=== PATIENT | female | born 1990 ===

== ENCOUNTER 2019-10-18 12:05 | Outpatient (CLI) | payer MEDICAID ==
[~2019-10-18] VITALS: Ht 162.6 cm; Wt 95.0 kg
[2019-10-18 13:01] LABS: MICROSCOPIC INDICATED
[2019-10-18 13:03] LABS: BASOPHILS # (AUTO) 0.02 x10^3/uL (0-0.1); BASOPHILS % (AUTO) 0 % (0-1); EOSINOPHILS # (AUTO) 0.02 x10^3/uL (0-0.4); EOSINOPHILS % (AUTO) 0 % (1-7); LYMPHOCYTES # (AUTO) 1.88 x10^3/uL (1-3.4); LYMPHOCYTES % (AUTO) 15 % (22-44); MD NO; MEAN CORPUSCULAR HEMOGLOBIN 30.8 pg (27.0-34.8); MEAN CORPUSCULAR HGB CONC 33.1 g/dL (32.4-35.8); MEAN PLATELET VOLUME 9.2 fL (7.4-10.4); MONOCYTES # (AUTO) 0.62 x10^3/uL (0.2-0.8); MONOCYTES % (AUTO) 5 % (2-9); NEUTROPHILS # (AUTO) 9.72 x10^3/uL (1.8-6.8); NEUTROPHILS % (AUTO) 79 % (42-75); PLATELET COUNT 241 x10^3/uL (130-400); RED BLOOD COUNT 4.59 x10^6/uL (3.82-5.3); RED CELL DISTRIBUTION WIDTH 13.1 % (9.6-15.2)
[2019-10-18 13:05] LABS: CREATININE,URINE RANDOM 91.1 mg/dL
[2019-10-18 13:10] VITALS: BP 116/62
[2019-10-18 13:16] LABS: ALANINE AMINOTRANSFERASE 26 U/L (12-78); ALBUMIN 2.8 g/dL (3.4-5.0); ANION GAP 8 mmol/L (5-15); BILIRUBIN, DIRECT < 0.1 mg/dL (0.1-0.2); CALCIUM 8.6 mg/dL (8.5-10.1); CHLORIDE 109 mmol/L (98-107); CREATININE 0.57 mg/dL (0.55-1.02)
[2019-10-18 13:20] LABS: ALKALINE PHOSPHATASE 154 U/L (45-117); BILIRUBIN,TOTAL 0.4 mg/dL (0.2-1.0); TOTAL PROTEIN 6.8 g/dL (6.4-8.2)
[2019-10-18] MEDS ORDERED: PREN1TAB10 PO (15:31)
== END 2019-10-18 15:55 | disposition home or self-care (01) ==
LOC: LDOP 12:05
PROVIDERS: ATTEND Obstetrics & Gynecology
DX: O36.8331 Maternal care for abnormalities of the fetal heart rate or rhythm, third trimester, fetus 1 (principal); Z11.59 Encounter for screening for other viral diseases; Z3A.38 38 weeks gestation of pregnancy
CPT/HCPCS: 36415; 59025; 76819; 80053; 81001; 82248; 82570; 84156; 84550; 85025; 87635

== ENCOUNTER 2019-10-20 15:39 | Inpatient (IN) | payer MEDICAID, OTHER ==
[~2019-10-20] VITALS: Ht 162.6 cm; Wt 95.0 kg
[~2019-10-20 15:39] MED LIST: PREN1TAB10 PO
[2019-10-20] MEDS ORDERED: LACTATED RINGERS 1,000 ML IVBOLUS ONE (16:00)
[2019-10-20 16:12] VITALS: BP 126/75
[2019-10-20 16:19] LABS: BASOPHILS # (AUTO) 0.03 x10^3/uL (0-0.1); BASOPHILS % (AUTO) 0 % (0-1); EOSINOPHILS # (AUTO) 0.02 x10^3/uL (0-0.4); EOSINOPHILS % (AUTO) 0 % (1-7); LYMPHOCYTES # (AUTO) 2.09 x10^3/uL (1-3.4); LYMPHOCYTES % (AUTO) 16 % (22-44); MD NO; MEAN CORPUSCULAR HEMOGLOBIN 30.5 pg (27.0-34.8); MEAN CORPUSCULAR HGB CONC 32.6 g/dL (32.4-35.8); MEAN PLATELET VOLUME 9.4 fL (7.4-10.4); MONOCYTES # (AUTO) 0.81 x10^3/uL (0.2-0.8); MONOCYTES % (AUTO) 6 % (2-9); NEUTROPHILS # (AUTO) 9.88 x10^3/uL (1.8-6.8); NEUTROPHILS % (AUTO) 77 % (42-75); PLATELET COUNT 250 x10^3/uL (130-400); RED BLOOD COUNT 4.67 x10^6/uL (3.82-5.3); RED CELL DISTRIBUTION WIDTH 12.8 % (9.6-15.2)
[2019-10-20] MEDS: LACTATED RINGERS 1,000 ML IV SCH ×2 (17:10→19:08)
[2019-10-20] MEDS ORDERED: METOCLOPRAMIDE 5 MG/ML, 2ML ONE (17:13)
[2019-10-20] MEDS ORDERED: OXYTOCIN 30U/ 0.9% NaCL 500ML 500 ML ONE (17:13)
[2019-10-20] MEDS ORDERED: SODIUM CITRATE/CITRIC ACID 30 ML UDC ONE (17:14)
[2019-10-20] MEDS ORDERED: SODIUM CITRATE/CITRIC ACID 30 ML UDC PO ONE (17:30)
[2019-10-20] MEDS ORDERED: MISOPROSTOL 200 MCG TABLET PR PRN (17:30)
[2019-10-20] MEDS ORDERED: ONDANSETRON 2MG/ML, 2ML IV PRN (17:30)
[2019-10-20] MEDS ORDERED: morphine SULFATE 10 MG/ML, 1ML IVPush PRN ×2 (17:30)
[2019-10-20] MEDS: KETOROLAC 30 MG/1 ML IV SCH ×2 (17:30→23:33)
[2019-10-20] MEDS ORDERED: ACETAMINOPHEN 325 MG TABLET PO PRN (17:30)
[2019-10-20] MEDS ORDERED: SIMETHICONE 80 MG CHEW TAB PO PRN (17:30)
[2019-10-20] MEDS ORDERED: METHYLERGONOVINE 0.2 MG/ML IM PRN (17:30)
[2019-10-20] MEDS ORDERED: METOCLOPRAMIDE 5 MG/ML, 2ML IV ONE (17:30)
[2019-10-20] MEDS ORDERED: CARBOPROST TROMETHAMINE 250 MCG/ML, 1ML IM PRN (17:30)
[2019-10-20] MEDS ORDERED: OXYTOCIN 10 UNITS/ML, 1ML ONE (17:33)
[2019-10-20] MEDS ORDERED: FENTANYL PF 100 MCG/2ML ONE (17:33)
[2019-10-20] MEDS ORDERED: ONDANSETRON 2MG/ML, 2ML ONE (17:33)
[2019-10-20] MEDS ORDERED: HYDROmorphone 2 MG/ML, 1ML ONE (17:33)
[2019-10-20] MEDS ORDERED: CEFAZOLIN 1,000 MG ONE (17:33)
[2019-10-20] MEDS ORDERED: MISOPROSTOL 200 MCG TABLET ONE ×2 (17:37→18:30)
[2019-10-20] MEDS ORDERED: SODIUM CHLORIDE 0.9% PF 10ML ONE ×2 (18:41)
[2019-10-20] MEDS ORDERED: KETOROLAC 30 MG/1 ML ONE (18:41)
[2019-10-20] MEDS: OXYTOCIN 30U/ 0.9% NaCL 500ML 500 ML IV SCH (19:08)
[2019-10-20] MEDS ORDERED: OXYcodone 5 MG/5 ML ORAL.SOL UDC ONE (19:32)
[2019-10-20] MEDS ORDERED: OXYcodone 5 MG/5 ML ORAL.SOL UDC PO PRN (20:00)
[2019-10-20 20:40] VITALS: BP 114/72
[2019-10-20] MEDS: DOCUSATE 100 MG CAPSULE PO PRN (23:34)
[2019-10-20] MEDS: OXYcodone/APAP 5/325MG TABLET PO PRN (23:34)
[2019-10-20 23:46] VITALS: BP 112/73
[2019-10-21] MEDS: LACTATED RINGERS 1,000 ML IV SCH ×5 (01:10→17:10)
[2019-10-21 02:52] LABS: BASOPHILS # (AUTO) 0.07 x10^3/uL (0-0.1); BASOPHILS % (AUTO) 1 % (0-1); EOSINOPHILS # (AUTO) 0.04 x10^3/uL (0-0.4); EOSINOPHILS % (AUTO) 0 % (1-7); LYMPHOCYTES # (AUTO) 2.17 x10^3/uL (1-3.4); LYMPHOCYTES % (AUTO) 16 % (22-44); MD NO; MEAN CORPUSCULAR HEMOGLOBIN 31.4 pg (27.0-34.8); MEAN CORPUSCULAR HGB CONC 33.8 g/dL (32.4-35.8); MEAN PLATELET VOLUME 9.1 fL (7.4-10.4); MONOCYTES # (AUTO) 0.62 x10^3/uL (0.2-0.8); MONOCYTES % (AUTO) 5 % (2-9); NEUTROPHILS # (AUTO) 10.36 x10^3/uL (1.8-6.8); NEUTROPHILS % (AUTO) 78 % (42-75); PLATELET COUNT 192 x10^3/uL (130-400); RED BLOOD COUNT 4.03 x10^6/uL (3.82-5.3); RED CELL DISTRIBUTION WIDTH 13.1 % (9.6-15.2)
[2019-10-21] MEDS: OXYTOCIN 30U/ 0.9% NaCL 500ML 500 ML IV SCH ×2 (03:10→13:10)
[2019-10-21] MEDS: OXYcodone/APAP 5/325MG TABLET PO PRN ×5 (04:31→23:37)
[2019-10-21 04:32] VITALS: BP 107/71
[2019-10-21] MEDS: KETOROLAC 30 MG/1 ML IV SCH ×4 (05:35→23:32)
[2019-10-21 07:52] VITALS: BP 100/68
[2019-10-21] MEDS: DOCUSATE 100 MG CAPSULE PO PRN ×3 (08:57→20:13)
[2019-10-21] MEDS: PRENATAL VIT/IRON/FA 1 EACH TABLET PO SCH (08:57)
[2019-10-21 11:52] VITALS: BP 101/70
[2019-10-21 19:15] VITALS: BP 108/74
[2019-10-21] MEDS ORDERED: DIPH,PERTUSS(ACELL),TET VAC/PF NC IM-VACC ONE (20:00)
[2019-10-22] MEDS: OXYcodone/APAP 5/325MG TABLET PO PRN ×3 (03:30→14:08)
[2019-10-22] MEDS: KETOROLAC 30 MG/1 ML IV SCH ×2 (05:17→11:58)
[2019-10-22 07:30] VITALS: BP 100/62
[2019-10-22] MEDS: PRENATAL VIT/IRON/FA 1 EACH TABLET PO SCH (08:52)
[2019-10-22] MEDS ORDERED: IBUP-1222 PO (12:11)
[2019-10-22] MEDS ORDERED: OXYC-302 PO (12:12)
[2019-10-22] MEDS ORDERED: SENN-52 PO (12:13)
[2019-10-22] MEDS ORDERED: IBUPROFEN 600 MG TABLET PO PRN (17:30)
== END 2019-10-22 14:10 | disposition home or self-care (01) | DRG 540 ==
LOC: LDIP 15:39 → 2NW 20:22
PROVIDERS: ADMIT Obstetrics & Gynecology; ATTEND Obstetrics & Gynecology
PROC: 10D00Z1 Extraction of Products of Conception, Low, Open Approach (ICD-10-PCS; principal; 2019-10-20)
DX: O69.1XX0 Labor and delivery complicated by cord around neck, with compression, not applicable or unspecified (principal); O69.2XX0 Labor and delivery complicated by other cord entanglement, with compression, not applicable or unspecified; O76 Abnormality in fetal heart rate and rhythm complicating labor and delivery; O99.52 Diseases of the respiratory system complicating childbirth; J45.909 Unspecified asthma, uncomplicated; O77.0 Labor and delivery complicated by meconium in amniotic fluid; O34.211 Maternal care for low transverse scar from previous cesarean delivery; O16.4 Unspecified maternal hypertension, complicating childbirth; Z37.0 Single live birth; Z3A.38 38 weeks gestation of pregnancy
CPT/HCPCS: 36415; 82803; 85025; 86592; 86850; 86900; 90715; G0378; J0690; J1170; J1885; J2405; J3010; J2590; J2765; J7120